=== PATIENT | male | born 1975 | race Caucasian/White ===

== ENCOUNTER 2020-04-05 22:21 | Emergency (ER) | payer SELFPAY ==
[2020-04-05 22:29] VITALS: BP 113/84
--- NOTE | 2020-04-05 22:39 | ER Document Report ---
ED Medical Screen (RME) - General Chief Complaint: ETOH Abuse Stated Complaint: ETOH ABUSE Time Seen by Provider: 04/05/20 22:33 Mode of Arrival: Wheelchair Information source: Patient Notes: HPI; 44-year-old male presents to the emergency room under the influence of alcohol. Apparently patient was brought over from [facility] with an alcohol level too high for him to stay there for detox. Patient was uncooperative refusing to answer any questions. Patient became verbally abusive in triage got out of the wheelchair and walked out stating "fuck you". PE: He is alert but refusing to answer any questions. Unable to do a physical exam. I have greeted and performed a rapid initial assessment of this patient. A comprehensive ED assessment and evaluation of the patient, analysis of test re sults and completion of the medical decision making process will be conducted by additional ED providers. I have specifically instructed the patient or family members with the patient to immediately return to any nursing staff should anything change in the patient's condition or with their chief complaint. TRAVEL OUTSIDE OF THE [place] IN LAST 30 DAYS: No Physical Exam - Vital signs Vitals: Temp Pulse Resp BP Pulse Ox 98.5 F 124 H 16 113/84 94 04/05/20 22:27 04/05/20 22:27 04/05/20 22:27 04/05/20 22:27 04/05/20 22:27 Course - Vital Signs Vital signs: Temp Pulse Resp BP Pulse Ox 98.5 F 124 H 16 113/84 94 04/05/20 22:27 04/05/20 22:27 04/05/20 22:27 04/05/20 22:27 04/05/20 22:27
== END 2020-04-05 22:45 | disposition left against medical advice (07) ==
LOC: ER 22:21
DX: F10.10 Alcohol abuse, uncomplicated (principal); Z53.20 Procedure and treatment not carried out because of patient's decision for unspecified reasons
CPT/HCPCS: 99281

== ENCOUNTER 2020-06-30 22:53 | Emergency (ER) | payer SELFPAY ==
[2020-06-30 23:29] LABS: ABSOLUTE BASOPHILS # (AUTO) 0.1 10^3/uL (0.0-0.2); ABSOLUTE EOSINOPHILS # (AUTO) 0.1 10^3/uL (0.0-0.6); ABSOLUTE LYMPHOCYTES (AUTO) 1.9 10^3/uL (0.5-4.7); ABSOLUTE MONOCYTES (AUTO) 0.3 10^3/uL (0.1-1.4); ABSOLUTE NEUT (AUTO) 1.8 10^3/uL (1.7-8.2); BASOPHILS % (AUTO) 1.3 % (0-2); EOSINOPHILS % (AUTO) 1.3 % (0-6); HEMATOCRIT 45.7 % (37.9-51.0); HEMOGLOBIN 16.3 g/dL (13.5-17.0); LYMPHOCYTES % (AUTO) 45.9 % (13-45); MEAN CORPUSCULAR HEMOGLOBIN 35.4 pg (27.0-33.4); MEAN CORPUSCULAR HGB CONC 35.7 g/dL (32.0-36.0); MEAN CORPUSCULAR VOLUME 99 fl (80-97); MONOCYTES % (AUTO) 6.6 % (3-13); PLATELET COUNT 273 10^3/uL (150-450); RED BLOOD COUNT 4.61 10^6/uL (4.35-5.55); RED CELL DISTRIBUTION WIDTH 13.9 % (11.5-14.0); SEGMENTED NEUTROPHILS % (AUTO) 44.9 % (42-78); TOTAL CELLS COUNTED % (AUTO) 100 %; WHITE BLOOD COUNT 4.1 10^3/uL (4.0-10.5)
[2020-06-30 23:40] LABS: ALBUMIN 4.7 g/dL (3.5-5.0); ALKALINE PHOSPHATASE 61 U/L (38-126); ANION GAP 16 (5-19); ASPARTATE AMINO TRANSFERASE 82 U/L (17-59); BILIRUBIN,DIRECT 0.4 mg/dL (0.0-0.4); BILIRUBIN,TOTAL 1.8 mg/dL (0.2-1.3); BLOOD UREA NITROGEN 10 mg/dL (7-20); CARBON DIOXIDE 24 mmol/L (22-30); CHLORIDE 104 mmol/L (98-107); GLUCOSE 114 mg/dL (75-110); POTASSIUM 4.3 mmol/L (3.6-5.0); TOTAL PROTEIN 7.5 g/dL (6.3-8.2)
--- NOTE | 2020-06-30 23:40 | ER Document Report ---
ED General - General TRAVEL OUTSIDE OF THE [place] IN LAST 30 DAYS: No <CHRISTELLE THOMAS - Last Filed: 07/01/20 07:11> <STARKEITH ARREGUIN [place] - Last Filed: 07/01/20 09:30> - General Chief Complaint: ETOH Abuse Stated Complaint: VOMITING Time Seen by Provider: 06/30/20 23:38 Notes: NURSE HPI: Pt. reports to the ED via POV with C/O ETOH. Pt. was at [facility] for N/V R/T ETOH. Pt. states that he had alcohol about 6 hours prior to arrival at [facility] this evening. he was throwing up and threw up blood so [facility] wanted him to come get evaluated. PT. HX of HTN and ETOH. Pt. blew a 0.387 for EMS. Pt. A+O x4, respirations even and unlabored. (CHRISTELLE THOMAS) - Related Data Allergies/Adverse Reactions: No Known Allergies Allergy (Verified 06/30/20 23:16) Past Medical History - General Information source: Patient - Social History Smoking Status: Never Smoker Frequency of alcohol use: Heavy Drug Abuse: Marijuana Family History: Other - Unable to obtain due to patient's EtOH intoxication Patient has homicidal ideation: No - Medical History Medical History: Other - Unable to obtain due to patient's EtOH intoxication <CHRISTELLE THOMAS - Last Filed: 07/01/20 07:11> Review of Systems - Review of Systems -: Yes ROS unobtainable due to patient's medical condition - EtOH intoxication <CHRISTELLE THOMAS - Last Filed: 07/01/20 07:11> Physical Exam <CHRISTELLE THOMAS - Last Filed: 07/01/20 07:11> - Vital signs Vitals: Pulse Ox 96 06/30/20 22:59 - Notes Notes: PHYSICAL EXAMINATION: GENERAL: Intoxicated, strong smell of EtOH, disheveled. HEAD: Atraumatic, normocephalic. EYES: Pupils equal round and reactive to light, extraocular movements intact, sclera anicteric, conjunctiva are normal. ENT: Nares patent, oropharynx clear without exudates. Moist mucous membranes. NECK: Normal range of motion, supple without lymphadenopathy LUNGS: Breath sounds clear to auscultation bilaterally and equal. No wheezes rales or rhonchi. HEART: Regular rate and rhythm without murmurs ABDOMEN: Soft, nontender, nondistended abdomen. No guarding, no rebound. No masses appreciated. Musculoskeletal: Normal range of motion, no pitting or edema. No cyanosis. NEUROLOGICAL: Cranial nerves grossly intact. Slurred speech secondary to EtOH intoxication. PSYCH: Normal mood, normal affect. SKIN: Warm, Dry, normal turgor, no rashes or lesions noted. (CHRISTELLE THOMAS) Course - Laboratory Result Diagrams: 06/30/20 23:09 06/30/20 23:09 <CHRISTELLE THOMAS - Last Filed: 07/01/20 07:11> - Laboratory Result Diagrams: 06/30/20 23:09 06/30/20 23:09 <KEITH LEGGETT - Last Filed: 07/01/20 09:30> - Re-evaluation Re-evalutation: 07/01/20 05:29 Patient has been resting comfortably since arrival. His initial EtOH level was well over 400. He has not had any additional vomiting since arrival to the emergency department. He was given Zofran IV fluids. We will obtain a repeat EtOH level once this is down to an acceptable range he will be discharged back over to the [facility]. 07/01/20 07:10 Unfortunately patient's EtOH level is 297. This is not low enough for him to be transferred to [facility]. This will need to be repeated in a few hours. (CHRISTELLE THOMAS) 07/01/20 09:29 Patient is awake and alert answers questions appropriately speech is not slurred. Patient states that he was up walking around already did not have any difficulty. He does complain of slight nausea still. He is willing to try to eat or drink. We will give him an additional dose of Zofran here. He has had absolutely no vomiting since he has been here in the emergency department. He is clinically sober. Alcohol level should be below 200 now based on time from last blood draw. Will be discharged to go to [facility] as he indicates he still wants to go for alcohol rehab. Patient heart rate is 84 on the monitor at this time (KEITH LEGGETT) - Vital Signs Vital signs: Temp Pulse Resp BP Pulse Ox 98.7 F 17 110/84 99 06/30/20 23:03 07/01/20 09:01 07/01/20 09:01 07/01/20 09:01 - Laboratory Laboratory results interpreted by me: 06/30/20 06/30/20 23:09 23:09 MCV 99 H MCH 35.4 H Lymph % (Auto) 45.9 H Glucose 114 H Total Bilirubin 1.8 H AST 82 H ALT 55 H Serum Alcohol 443 H* Discharge <CHRISTELLE THOMAS - Last Filed: 07/01/20 07:11> <KEITH LEGGETT - Last Filed: 07/01/20 09:30> - Discharge Clinical Impression: ETOH abuse Condition: Stable Disposition: HOME, SELF-CARE Additional Instructions: Go directly to [facility] for treatment for alcoholism.
[2020-06-30 23:52] LABS: ALCOHOL 443 mg/dL (NONE DETECTED)
[2020-07-01] MEDS ORDERED: NORMAL SALINE 1000 ML 1,000 ML IV ONE (01:21)
[2020-07-01] MEDS ORDERED: ONDANSETRON HCL INJ/PF 4 MG/2 ML SDV IV ONE (01:21)
[2020-07-01 04:26] LABS: APPEARANCE,URINE CLEAR; BILIRUBIN,URINE NEGATIVE (NEGATIVE); COLOR,URINE YELLOW; GLUCOSE, URINE NEGATIVE (NEGATIVE); KETONES,URINE NEGATIVE (NEGATIVE); LEUKOCYTE ESTERASE,URINE NEGATIVE (NEGATIVE); NITRITE,URINE NEGATIVE (NEGATIVE); PROTEIN,URINE NEGATIVE (NEGATIVE); URINE SPECIFIC GRAVITY 1.005; UROBILINOGEN,URINE NEGATIVE mg/dL (<2.0)
[2020-07-01] MEDS ORDERED: ONDANSETRON 4 MG TAB.RAPDIS PO ONE (09:28)
[2020-07-01 09:53] VITALS: BP 135/109
== END 2020-07-01 09:55 | disposition home or self-care (01) ==
LOC: ER 22:53
DX: F10.129 Alcohol abuse with intoxication, unspecified (principal); Y90.8 Blood alcohol level of 240 mg/100 ml or more; K92.0 Hematemesis; I10 Essential (primary) hypertension; F12.10 Cannabis abuse, uncomplicated
CPT/HCPCS: 99283; 96361; 96374; 36415; 80307; 83690; 85025; 80053; 81001; S0119; J2405; J7030